=== PATIENT | female | born 1995 | race Hispanic/Latino ===

== ENCOUNTER 2020-09-18 10:09 | Emergency (ER) | payer OTHER ==
[~2020-09-18] VITALS: Ht 160 cm; Wt 61.2 kg
[2020-09-18] MEDS ORDERED: LAMO100T3 PO (10:16)
[2020-09-18] MEDS ORDERED: [UNRECOGNIZED DRUG - OTHER] PO (10:16)
[2020-09-18] MEDS ORDERED: NS 1,000 ML IV ONE (11:35)
[2020-09-18 12:09] LABS: BASO % 0.3 % (0.0-1.0); EOS # 0.1 10^3/uL (0.0-0.5); EOS % 1.1 % (0.0-3.0); HEMATOCRIT 37.1 % (36.0-47.0); HEMOGLOBIN 12.4 g/dl (12.0-15.5); LYMPH # 1.6 10^3/uL (1.5-5.0); LYMPH % 21.6 % (24.0-44.0); MEAN CORPUSCULAR HGB CONC 33.4 g/dl (32.0-36.5); MEAN CORPUSCULAR VOLUME 86.9 fl (80.0-96.0); MONO # 0.3 10^3/uL (0.0-0.8); NEUTROPHILS # 5.3 10^3/uL (1.5-8.5); NEUTROPHILS % 72.7 % (36.0-66.0); PLATELET COUNT, AUTOMATED 299 10^3/uL (150-450); RED BLOOD COUNT 4.27 10^6/uL (4.00-5.40); WHITE BLOOD COUNT 7.2 10^3/uL (4.0-10.0)
--- NOTE | 2020-09-18 12:37 | REP ---
INDICATION: R flank RLQ pain, hematuria. COMPARISON: None. TECHNIQUE: Standard helical technique without intravenous or oral bowel preparatory contrast administration. This causes exam limitations. FINDINGS: The lung bases are clear. There is diffuse low density seen throughout the hepatic parenchyma. There are no choleiths. There is no evidence of nephroureterolithiasis, hydronephrosis, or hydroureter. There are no urinary bladder calcifications. Limited evaluation of the pancreas, adrenal glands, and kidneys show no gross abnormalities. The spleen is unremarkable. Limited evaluation of the abdominal aorta and para-aortic regions show no gross abnormalities. Within the pelvis there is a relatively large 9 x 6.7 x 5.4 cm sized cystic appearing mass. In the left adnexa there is a smaller 4.4 by 3.5 by 3.1 cm sized cystic appearing mass. These both may potentially be of ovarian origin. These are difficult to evaluate not only with CT with even more so since no intravenous contrast or oral bowel preparatory contrast was administered. Bone window technique throughout the examination shows the osseous structures to be within normal limits. IMPRESSION: 1. Cystic appearing pelvic masses as described above. 2. Diffuse fatty infiltration of the liver. <Electronically signed by Estevan Amin > 09/18/20 [id number]
[2020-09-18 12:38] LABS: ALBUMIN 3.8 GM/DL (3.2-5.2); BILIRUBIN,DIRECT 0.1 MG/DL (0.0-0.2); BILIRUBIN,TOTAL 0.2 MG/DL (0.2-1.0); TOTAL PROTEIN 7.3 GM/DL (6.4-8.2)
--- NOTE | 2020-09-18 13:52 | REP ---
INDICATION: large pelvic masses seen on CT. COMPARISON: No prior ultrasounds for comparison. Prior CT showed pelvic cystic masses TECHNIQUE: Transvesical and transvaginal imaging FINDINGS: The uterus measures 7.9 x 2.3 x 2.4 cm. The uterine parenchyma is unremarkable. The endometrial echo complex measures 1 cm in thickness. Neither ovary was visualized transvesical air transvaginally. Large bilateral adnexal complex cystic masses are identified on the right this measures approximately 9.1 x 6.7 x 3.9 cm and on the left this measures 2.9 x 3.6 x 2.3 cm and may be arising from the left ovary which was not definitively identified but presumed to measure 2 x 2.6 x 1.9 cm. Urinary bladder measures 7 x 9 x 5 cm. IMPRESSION: Bilateral cystic pelvic masses as described above. Whether or not 1 or the other is of ovarian origin cannot be determined at this time. It is likely, however, that they are. Possible etiology is ovarian serous cystadenoma or possibly mucinous cystadenoma. Certainly, neoplastic origin other than benign cannot be ruled out by today's exam front desk lead consultation is recommended with close follow-up. <Electronically signed by Estevan Amin > 09/18/20 [id number]
[2020-09-18 14:37] VITALS: BP 110/70
--- NOTE | 2020-09-20 09:40 | ED PDOC ---
Post-Departure Follow-Up radiology report faxed to [facility] Tania Eaton MD Sep 20, 2020 09:40
== END 2020-09-18 14:39 | disposition home or self-care (01) ==
LOC: M ED 10:09
DX: R19.09 Other intra-abdominal and pelvic swelling, mass and lump (principal); R11.0 Nausea; K76.0 Fatty (change of) liver, not elsewhere classified

== ENCOUNTER 2021-04-05 11:58 | Emergency (ER) | payer OTHER ==
[~2021-04-05] VITALS: Ht 157.5 cm; Wt 62.0 kg
[~2021-04-05 11:58] MED LIST: LAMO100T3 PO; [UNRECOGNIZED DRUG - OTHER] PO
[2021-04-05] MEDS ORDERED: VENL75TA2 PO (12:16)
[2021-04-05] MEDS ORDERED: NORG1TAB4 PO (12:16)
[2021-04-05] MEDS ORDERED: IBUP-1720 PO (12:16)
[2021-04-05 13:57] VITALS: BP 114/56
== END 2021-04-05 13:58 | disposition home or self-care (01) ==
LOC: M ED 11:58
DX: S99.922A Unspecified injury of left foot, initial encounter (principal); S83.92XA Sprain of unspecified site of left knee, initial encounter; F31.9 Bipolar disorder, unspecified; Z87.42 Personal history of other diseases of the female genital tract; W01.0XXA Fall on same level from slipping, tripping and stumbling without subsequent striking against object, initial encounter; Y92.009 Unspecified place in unspecified non-institutional (private) residence as the place of occurrence of the external cause; Y99.9 Unspecified external cause status; Y93.9 Activity, unspecified